=== PATIENT | male | born 1940 | race Caucasian/White ===

== ENCOUNTER 2017-06-03 18:31 | Observation (INO) | payer MEDICARE ==
[~2017-06-03] VITALS: Ht 177.8 cm; Wt 83.4 kg
[2017-06-03 19:12] LABS: ADJUSTED CALCIUM 8.9 mg/dL (8.4-10.2); ALANINE AMINOTRANSFERASE 27 U/L (21-72); ALBUMIN 4.1 gm/dL (3.5-5.0); ALKALINE PHOSPHATASE 105 U/L (50-136); ANION GAP 11 mmol/L (7-16); BILIRUBIN,TOTAL 0.5 mg/dL (0.0-1.0); BLOOD UREA NITROGEN 27 mg/dL (9-20); CARBON DIOXIDE 25 mmol/L (22-30); CHLORIDE 106 mmol/L (98-107); CREATININE, serum 1.35 mg/dL (0.66-1.25); GLUCOSE 106 mg/dL (74-106); POTASSIUM 3.3 mmol/L (3.4-5.0); SODIUM 141 mmol/L (137-145); TOTAL PROTEIN 6.8 gm/dL (6.4-8.2)
[2017-06-03 19:25] LABS: TROPONIN-I < 0.012 ng/mL (0.000-0.034)
[2017-06-03] MEDS ORDERED: TEGRETOL 2200 MG/TA1 PO (20:02)
[2017-06-03] MEDS ORDERED: PRILOSEC 20MG20 MG PO (20:02)
[2017-06-03] MEDS ORDERED: CYMBALTA 60MG60 MG PO (20:03)
[2017-06-03] MEDS ORDERED: NEURONTIN300 MG/CAP PO (20:03)
[2017-06-03] MEDS ORDERED: ELIQUIS 5MG PO (20:03)
[2017-06-03] MEDS ORDERED: GLUCOPHAGE500 MG/TAB PO (20:04)
[2017-06-03 20:20] LABS: BASO # 0.1 (0.0-0.2); BASO % 0.8 % (0.0-2.0); EOS # 0.2 (0.0-0.7); EOS % 2.6 % (0-4.0); GRAN # 4.5 (1.4-6.5); GRAN % 57.7 % (42.2-75.2); HEMOGLOBIN 12.8 g/dl (13.5-18.0); LYMPH # 2.2 (1.2-3.4); LYMPH % 28.1 % (20.0-51.0); MEAN CELL VOLUME 101 fl (80.0-100.0); MEAN CORPUSCULAR HEMOGLOBIN 35 pg (27.0-31.0); MEAN CORPUSCULAR HGB CONC 35 g/dl (33.0-37.0); MEAN PLATELET VOLUME 12.6 fl (7.4-10.4); MONO # 0.8 (0.1-0.6); MONO % 10.4 % (1.7-9.3); PLATELET COUNT 152 K/mm3 (130-400); RED BLOOD COUNT 3.64 M/mm3 (4.20-5.60); WHITE BLOOD COUNT 7.8 K/mm3 (4.8-10.8)
[2017-06-03 20:26] LABS: HEMATOCRIT 36.8 % (42.0-52.0)
[2017-06-03 22:51] VITALS: BP 145/67; PULSE 63; TEMP 97.3
[2017-06-03 22:53] VITALS: BP 145/67; PULSE 63; TEMP 97.3
[2017-06-04 03:34] VITALS: BP 171/83; PULSE 66; TEMP 97.3
[2017-06-04 05:56] LABS: PH 6 (5-8); SQUAMOUS EPITHELIAL None Seen /hpf; URINE APPEARANCE Clear; URINE BACTERIA None Seen /hpf; URINE BILIRUBIN Negative (NEGATIVE); URINE BLOOD Negative (NEGATIVE); URINE COLOR Straw; URINE GLUCOSE Negative (NEGATIVE); URINE KETONE Negative (NEGATIVE); URINE LEUKOCYTE ESTERASE Negative (NEGATIVE); URINE PROTEIN(semi-quant) Negative (NEGATIVE); URINE RBC 0-2 /hpf; URINE UROBILINOGEN Negative (NEGATIVE); URINE WBC 0-2 /hpf
[2017-06-04 06:10] LABS: COLLECTION METHOD CLEAN CATCH
[2017-06-04 07:05] VITALS: BP 140/49; PULSE 67; TEMP 97.1
[2017-06-04 07:07] LABS: BASO # 0.1 (0.0-0.2); EOS # 0.2 (0.0-0.7); EOS % 2.8 % (0-4.0); GRAN % 69.4 % (42.2-75.2); HEMATOCRIT 32.9 % (42.0-52.0); HEMOGLOBIN 11.1 g/dl (13.5-18.0); LYMPH % 17.5 % (20.0-51.0); MEAN CELL VOLUME 104 fl (80.0-100.0); MEAN CORPUSCULAR HEMOGLOBIN 35 pg (27.0-31.0); MEAN CORPUSCULAR HGB CONC 34 g/dl (33.0-37.0); MEAN PLATELET VOLUME 13.4 fl (7.4-10.4); MONO # 0.5 (0.1-0.6); MONO % 8.8 % (1.7-9.3); PLATELET COUNT 132 K/mm3 (130-400); RED BLOOD COUNT 3.17 M/mm3 (4.20-5.60); WHITE BLOOD COUNT 5.8 K/mm3 (4.8-10.8)
[2017-06-04 07:25] LABS: CALCIUM 8.2 mg/dL (8.4-10.2); CREATININE, serum 1.23 mg/dL (0.66-1.25); POTASSIUM 3.9 mmol/L (3.4-5.0)
[2017-06-04 11:28] VITALS: BP 134/61; PULSE 86; TEMP 98.3
[2017-06-04 15:54] VITALS: BP 189/89; PULSE 81; TEMP 98.5
[2017-06-04 21:07] VITALS: BP 141/77; PULSE 81; TEMP 98.3
[2017-06-05 03:33] VITALS: BP 152/87; PULSE 67; TEMP 98.5
[2017-06-05 07:55] VITALS: BP 152/68; PULSE 64; TEMP 98.2
[2017-06-05] MEDS ORDERED: LOVENOX150 MG/ML SQ (10:01)
== END 2017-06-05 11:22 | disposition home or self-care (01) ==
LOC: COL.ER 18:31 → MEDICAL 20:08
PROVIDERS: Family Medicine; Nurse Practitioner
DX: R07.9 Chest pain, unspecified (principal); D50.9 Iron deficiency anemia, unspecified; E87.6 Hypokalemia; K21.9 Gastro-esophageal reflux disease without esophagitis; E11.22 Type 2 diabetes mellitus with diabetic chronic kidney disease; N18.9 Chronic kidney disease, unspecified; G50.0 Trigeminal neuralgia; I08.1 Rheumatic disorders of both mitral and tricuspid valves; Z79.01 Long term (current) use of anticoagulants; Z79.84 Long term (current) use of oral hypoglycemic drugs; Z82.49 Family history of ischemic heart disease and other diseases of the circulatory system; Z82.3 Family history of stroke; Z83.3 Family history of diabetes mellitus
CPT/HCPCS: 99222-AI; A9539; A9540; G0378; J1815; J7030; J7512